=== PATIENT | female | born 1965 | race Caucasian/White ===

== ENCOUNTER 2021-03-30 15:31 | Outpatient (CLI) | payer OTHER, SELFPAY ==
--- NOTE | 2021-03-30 15:53 | RAD_ITS ---
EXAM: XR THORACIC SPINE, 3 VIEWS CLINICAL INDICATION: M96.1 CHRONIC BACK PAIN. HX OF SEVERAL BACK SURGERIES. TECHNIQUE: Frontal, lateral and swimmer''s views of the thoracic spine. This report was created using [employer] report generation technology. COMPARISON: None. FINDINGS: VERTEBRAE: Age indeterminate superior endplate compression deformity of T7. Broken screw at the level of L3. DISC SPACES: Cervical thoracic and lumbar spinal fixation hardware. RAD/Thoracic Spine 3 Views IMPRESSION: Age indeterminate superior endplate compression deformity of T7. Broken screw at the level of L3. Electronically Signed: Matthew Valerio MD at 14:23 EST ,
--- NOTE | 2021-03-30 15:53 | RAD_ITS ---
STUDY: X-RAY - LUMBAR SPINE REASON FOR EXAM: Female, 55 years old. LOW BACK PAIN M96.1 TECHNIQUE: XR Spine Lumbar 2 or 3 Views COMPARISON: None FINDINGS: Normal lumbar lordosis. There is no substantial scoliosis. There is a normal alignment of the vertebrae. There is multilevel endplate spondylosis of the lumbar vertebrae. There is multi-level degenerative disc disease with multi-level disc space narrowing. Disc spacers in place. Anterior fusion plate visualized at L3-4 L4-5 and L5-S1. Spinal fixation hardware noted. Pedicle screws at L3 are discontinuous. The soft tissue structures are unremarkable. RAD/Lumbar Spine 2 or 3 Views IMPRESSION: Degenerative changes of the spine, as detailed above. Pedicle screws at L3 are discontinuous. Findings of a postsurgical spinal fixation Electronically Signed: Matthew Valerio MD at 14:34 EST ,
--- NOTE | 2021-03-30 15:55 | RAD_ITS ---
STUDY: X-RAY - CERVICAL SPINE REASON FOR EXAM: Female, 55 years old. Chronic back pain. History of back surgeries. TECHNIQUE: 3 view(s) of the cervical spine were obtained. COMPARISON: None FINDINGS: There are mild degenerative changes of the anterior atlantoaxial articulation. Normal odontoid process. Normal cervical lordosis. There is posterior fusion of the cervicothoracic spine extending from C2 to at least the mid thoracic spine. The hardware appears intact. Additionally there is anterior fusion C5-C6 and C6-7. Narrowing of disc spaces with minimal endplate spondylosis. There is slight retrolisthesis of C3 on C4. There is no evidence of acute fracture or loss of vertebral axial height.. The soft tissue structures are unremarkable. RAD/Cerv Spine 2 or 3 Views IMPRESSION: Surgical fusion on the cervical spine without evidence of acute fracture or subluxation. Electronically Signed: Eduardo Novak DO at 16:36 EST ,
== END 2021-03-30 23:59 | disposition home or self-care (01) ==
LOC: RAD 15:47
PROVIDERS: Referring Provider Anesthesiology Pain Medicine; Visit Provider Anesthesiology Pain Medicine
DX: M96.1 Postlaminectomy syndrome, not elsewhere classified (principal)
CPT/HCPCS: 72040; 72070; 72072; 72100

== ENCOUNTER 2021-04-23 15:01 | Outpatient (CLI) | payer OTHER, SELFPAY ==
[2021-04-23 17:18] LABS: Amphetamine Urine VISTA NEGATIVE (<1000 ng/mL); Barbiturate Urine VISTA NEGATIVE (< 200 ng/mL); Benzodiazepine Urine VISTA NEGATIVE (< 200 ng/mL); Cocaine Urine VISTA NEGATIVE (< 300 ng/mL); Ecstacy Urine VISTA NEGATIVE (< 500 ng/mL); Methadone Urine VISTA NEGATIVE (< 300 ng/mL); PCP Urine VISTA NEGATIVE (< 25 ng/mL); THC Urine VISTA POSITIVE (< 50 ng/mL); Vista UDS pH Range 5
== END 2021-04-23 23:59 | disposition home or self-care (01) ==
PROVIDERS: Visit Provider Anesthesiology Pain Medicine
DX: F11.20 Opioid dependence, uncomplicated (principal)
CPT/HCPCS: 80307